=== PATIENT | female | born 1975 | race Caucasian/White ===

== ENCOUNTER 2020-03-23 09:30 | Outpatient (CLI) | payer OTHER ==
[2020-03-23 10:13] LABS: HGB - HEMOGLOBIN 11.9 g/dL (12.0-16.0); MEAN CORPUSCULAR HEMOGLOBIN 27.7 pg (27.0-31.0); MEAN PLATELET VOLUME 10.5 fL (7.9-10.8); RED BLOOD COUNT 4.3 10^6/uL (4.20-5.40); RED CELL DISTRIBUTION WIDTH 14.2 % (12.0-15.0); WHITE BLOOD COUNT 3.5 x10^3/uL (4.8-10.8)
[2020-03-23 10:33] LABS: CHOL/HDL RATIO 3.2 (<4.4); CHOLESTEROL 221 mg/dL; HDL CHOLESTEROL 69 mg/dL; LDL CHOLESTEROL,CALCULATED 137 mg/dL; VLDL CHOLESTEROL 15 mg/dL
== END 2020-03-23 09:31 | disposition home or self-care (01) ==
LOC: LAB 09:30
PROVIDERS: ATTEND Advanced Practice Midwife
DX: Z00.00 Encounter for general adult medical examination without abnormal findings (principal)
CPT/HCPCS: 36415; 80061; 82306; 83721; 84443; 85027

== ENCOUNTER 2021-11-17 08:24 | Emergency (ER) | payer OTHER ==
--- NOTE | 2021-11-17 08:44 | ED Physician Documentation ---
PD HPI SYNCOPE - Stated complaint Stated Complaint: PASSING OUT - Chief complaint Chief Complaint: Cardiac - History obtained from History obtained from: Patient - History of Present Illness Witnessed: Witnessed Timing - onset: Today (The patient was sitting out on her deck with her mother comfortably having coffee when felt abruptly lightheaded and near syncope. This resolved after 5 to 10 seconds and then felt fine. It recurred twice over the next 15 minutes or so. She started recording her heart rhythm with her watch.) Duration: Seconds Preceding symptoms: Light headed. No: Headache, Chest pain, Abdominal pain, Nausea / vomiting, Generalized weakness Associated symptoms: No: Seizure, Headache, Chest pain, Dyspnea Contributing factors: No: Recent med change, Decreased PO intake, Noxious stimulae, Just stood up Injury occurred: No: Fell, Head injury, Neck injury Similar symptoms before: No diagnosis (She states similar episode several days ago very briefly but thought it was just vasovagal. Interval time with normal exercise tolerance.) Recently seen: Not recently seen Review of Systems Constitutional: denies: Fever, Chills Nose: denies: Rhinorrhea / runny nose, Congestion Throat: denies: Sore throat Respiratory: denies: Cough GI: denies: Abdominal Pain, Nausea, Vomiting, Diarrhea, Bloody / black stool Neurologic: reports: Near syncope. denies: Generalized weakness, Altered mental status, Headache PD PAST MEDICAL HISTORY - Past Medical History Past Medical History: No Respiratory: None Neuro: None Endocrine/Autoimmune: None - Present Medications Home Medications: Ambulatory Orders Medication Instructions Recorded Confirmed No Known Home Medications 11/17/21 11/17/21 - Allergies Allergies/Adverse Reactions: Allergies Allergy/AdvReac Type Severity Reaction Status Date / Time morphine AdvReac Hives Verified 11/17/21 08:28 PD ED PE NORMAL - Vitals Vital signs reviewed: Yes - General General: Alert and oriented X 3, No acute distress, Well developed/nourished - HEENT HEENT: Pharynx benign - Neck Neck: Supple, no meningeal sign, No adenopathy, No JVD - Cardiac Cardiac: RRR, No murmur, No rub - Respiratory Respiratory: No respiratory distress, Clear bilaterally - Abdomen Abdomen: Soft, Non tender - Derm Derm: Normal color, Warm and dry - Extremities Extremities: Normal ROM s pain, No edema, No calf tenderness / cord - Neuro Neuro: Alert and oriented X 3, No motor deficit, No sensory deficit, Normal speech Results - Vitals Vitals: Vital Signs - 24 hr 11/17/21 11/17/21 11/17/21 08:29 08:43 10:10 Temperature 36.2 C L Heart Rate 109 H 109 H 89 Respiratory 18 20 24 Rate Blood Pressure 147/96 H 147/87 H 113/80 O2 Saturation 100 100 99 11/17/21 11/17/21 11/17/21 10:30 11:31 12:13 Temperature Heart Rate 82 94 81 Respiratory 16 32 H 19 Rate Blood Pressure 120/72 122/88 H 118/69 O2 Saturation 100 99 98 11/17/21 11/17/21 11/17/21 12:53 13:05 13:43 Temperature Heart Rate 76 79 105 H Respiratory 23 25 H 24 Rate Blood Pressure 116/78 104/82 H 119/86 H O2 Saturation 98 99 100 11/17/21 11/17/21 11/17/21 14:20 14:34 15:03 Temperature 37.2 C Heart Rate 86 92 85 Respiratory 16 18 20 Rate Blood Pressure 139/91 H 129/79 146/112 H O2 Saturation 98 99 100 11/17/21 11/17/21 16:02 17:00 Temperature 37 C Heart Rate 94 63 Respiratory 17 22 Rate Blood Pressure 146/112 H 142/129 H O2 Saturation 98 100 Oxygen O2 Source Room air - EKG (time done) 08:35 Rate: Rate (enter#) (99) Rhythm: NSR [place]: Normal Intervals: Normal VT. No: Prolonged QT QRS: Normal Ischemia: Normal ST segments. No: ST elevation c/w ischemia, ST depression Compare to prior EKG: Old EKG unavailable - Tele (time rhythm occurred) from her watch Telemetry / rhythm strip: Other (Sinus rhythm rate approximately 80 with then a 5-second pause with P waves at normal intervals but no QRS.) - Labs Labs: Laboratory Tests 11/17/21 11/17/21 11/17/21 08:40 08:40 08:40 WBC 4.6 L RBC 4.79 Hgb 13.0 Hct 39.6 MCV 82.7 MCH 27.1 MCHC 32.8 RDW 13.8 Plt Count 206 MPV 10.3 Neut # (Auto) 2.6 Lymph # (Auto) 1.3 L [place] # (Auto) 0.4 Eos # (Auto) 0.2 Baso # (Auto) 0.0 Absolute Nucleated RBC 0.00 Nucleated RBC % 0.0 Sodium 135 Potassium 3.8 Chloride 103 Carbon Dioxide 22 Anion Gap 10.0 BUN 11 Creatinine 0.6 Estimated GFR (MDRD) 107 Glucose 103 H Calcium 9.5 Magnesium Total Bilirubin 0.7 AST 24 ALT 24 Alkaline Phosphatase 64 Troponin I High Sens 2.3 B-Natriuretic Peptide Total Protein 8.1 Albumin 4.5 Globulin 3.6 Albumin/Globulin Ratio 1.3 Lipase 49 TSH Nasal Adenovirus (PCR) Nasal B. parapertussis DNA (PCR) Nasal Coronavir 229E PCR Nasal Coronavir HKU1 PCR Nasal Coronavir NL63 PCR Nasal Coronavir OC43 PCR Nasal Enterovir/Rhinovir PCR Nasal Influenza B PCR Nasal Influenza A PCR Nasal Parainfluen 1 PCR Nasal Parainfluen 2 PCR Nasal Parainfluen 3 PCR Nasal Parainfluen 4 PCR Nasal RSV (PCR) Nasal B.pertussis DNA PCR Nasal C.pneumoniae (PCR) [place] Human Metapneumo PCR Nasal M.pneumoniae (PCR) Nasal SARS-CoV-2 (PCR) 11/17/21 11/17/21 11/17/21 08:40 08:40 08:40 WBC RBC Hgb Hct MCV MCH MCHC RDW Plt Count MPV Neut # (Auto) Lymph # (Auto) [place] # (Auto) Eos # (Auto) Baso # (Auto) Absolute Nucleated RBC Nucleated RBC % Sodium Potassium Chloride Carbon Dioxide Anion Gap BUN Creatinine Estimated GFR (MDRD) Glucose Calcium Magnesium 2.3 Total Bilirubin AST ALT Alkaline Phosphatase Troponin I High Sens B-Natriuretic Peptide 14 Total Protein Albumin Globulin Albumin/Globulin Ratio Lipase TSH 3.70 Nasal Adenovirus (PCR) Nasal B. parapertussis DNA (PCR) Nasal Coronavir 229E PCR Nasal Coronavir HKU1 PCR Nasal Coronavir NL63 PCR Nasal Coronavir OC43 PCR Nasal Enterovir/Rhinovir PCR Nasal Influenza B PCR Nasal Influenza A PCR Nasal Parainfluen 1 PCR Nasal Parainfluen 2 PCR Nasal Parainfluen 3 PCR Nasal Parainfluen 4 PCR Nasal RSV (PCR) Nasal B.pertussis DNA PCR Nasal C.pneumoniae (PCR) [place] Human Metapneumo PCR Nasal M.pneumoniae (PCR) Nasal SARS-CoV-2 (PCR) 11/17/21 10:50 WBC RBC Hgb Hct MCV MCH MCHC RDW Plt Count MPV Neut # (Auto) Lymph # (Auto) [place] # (Auto) Eos # (Auto) Baso # (Auto) Absolute Nucleated RBC Nucleated RBC % Sodium Potassium Chloride Carbon Dioxide Anion Gap BUN Creatinine Estimated GFR (MDRD) Glucose Calcium Magnesium Total Bilirubin AST ALT Alkaline Phosphatase Troponin I High Sens B-Natriuretic Peptide Total Protein Albumin Globulin Albumin/Globulin Ratio Lipase TSH Nasal Adenovirus (PCR) NOT DETECTED Nasal B. parapertussis DNA (PCR) NOT DETECTED Nasal Coronavir 229E PCR NOT DETECTED Nasal Coronavir HKU1 PCR NOT DETECTED Nasal Coronavir NL63 PCR NOT DETECTED Nasal Coronavir OC43 PCR NOT DETECTED Nasal Enterovir/Rhinovir PCR NOT DETECTED Nasal Influenza B PCR NOT DETECTED Nasal Influenza A PCR NOT DETECTED Nasal Parainfluen 1 PCR NOT DETECTED Nasal Parainfluen 2 PCR NOT DETECTED Nasal Parainfluen 3 PCR NOT DETECTED Nasal Parainfluen 4 PCR NOT DETECTED Nasal RSV (PCR) NOT DETECTED Nasal B.pertussis DNA PCR NOT DETECTED Nasal C.pneumoniae (PCR) NOT DETECTED [place] Human Metapneumo PCR NOT DETECTED Nasal M.pneumoniae (PCR) NOT DETECTED Nasal SARS-CoV-2 (PCR) NOT DETECTED - Rads (name of study) chest xray Radiology: Prelim report reviewed (no acute process), See rad report PD MEDICAL DECISION MAKING - ED course Complexity details: reviewed results, re-evaluated patient, considered differential (The patient has a short telemetry switch from her watch which clearly shows a rhythm with a 5-second period of no ventricular conduction of the P waves. She had several episodes of this this morning. I would want cardiology input and presumed transfer.), d/w patient, d/w provider contracting consultant (Spoke with Dr. Brooks cardiology at [facility]. He felt the patient likely has indication for pacemaker. However they do not have any capacity for beds to accept. Suggest calling other places. I talked with Dr. Myrna Lowe on-call cardiology for . She does accept but no beds.) ED course: At this point we are looking at other facilities for potential transfer and at least cardiology consult. [facility] is had us paged Dr. Mckeon but he has not yet called back as he has been in a procedure. Other hospitals do not have beds available. [facility] cardiology did call back and felt the patient does need a pacemaker but they do not have beds available. I talked with Dr. Myrna Lowe on-call cardiol ogcole at the who also feels the pacemaker is indicated but they do not have beds available. She does accept the transfer however to put the patient on a acceptance priority list for cardiology. They do use or just to keep calling other places though. The patient had a connection through a professional contact with a technical project lead at [facility], Dr. Covarrubias. He states he would talk with the [facility] and see if they are able to accept directly to the ER. Our TRENCHING MACHINE OPERATOR did contact the [facility] transfer center who declined ER to ER transfer because of their boarding excessively large number of patients. I updated the patient here who is understanding of the situation. transfer did call back and they had a room available at their [facility]. They are excepting the transfer. The patient remained stable in the ER without any further episodes. Normal sinus rhythm on monitor. She maintains with the pacing pads in place just in case. She will be transferred by ALS ambulance to the [facility]. Departure - Departure Disposition: 02 Transfer Acute Care Hosp Clinical Impression: Near syncope, Intermittent complete atrioventricular block Condition: Stable Record reviewed to determine appropriate education?: Yes
[2021-11-17 08:47] LABS: BASOPHILS % (AUTO) 0.7 %; EOSINOPHILS # (AUTO) 0.2 10^3/uL (0.0-0.7); EOSINOPHILS % (AUTO) 4.6 %; HCT - HEMATOCRIT 39.6 % (37.0-47.0); LYMPHOCYTES # (AUTO) 1.3 10^3/uL (1.5-3.5); LYMPHOCYTES % (AUTO) 28.9 %; MEAN CORPUSCULAR HEMOGLOBIN 27.1 pg (27.0-31.0); MEAN CORPUSCULAR HGB CONC 32.8 g/dL (32.0-36.0); MEAN CORPUSCULAR VOLUME 82.7 fL (81.0-99.0); MEAN PLATELET VOLUME 10.3 fL (7.9-10.8); MONOCYTES # (AUTO) 0.4 10^3/uL (0.0-1.0); MONOCYTES % (AUTO) 8.5 %; NEUTROPHILS # (AUTO) 2.6 10^3/uL (1.5-6.6); NEUTROPHILS % (AUTO) 57.1 %; PLT - PLATELET COUNT 206 10^3/uL (130-450); RED BLOOD COUNT 4.79 10^6/uL (4.20-5.40); RED CELL DISTRIBUTION WIDTH 13.8 % (12.0-15.0); WHITE BLOOD COUNT 4.6 x10^3/uL (4.8-10.8)
--- NOTE | 2021-11-17 08:55 | XRAY Report ---
PROCEDURE: Chest 1 View X-Ray INDICATIONS: Chest pain TECHNIQUE: One view of the chest was acquired. COMPARISON: None FINDINGS: Surgical changes and devices: None. Lungs and pleura: No pleural effusions or pneumothorax. Lungs are clear. Mediastinum: Mediastinal contours appear normal. Heart size is normal. Bones and chest wall: No suspicious bony lesions. Overlying soft tissues appear unremarkable. IMPRESSION: No evidence acute pulmonary process. Reviewed by: Tano Shaikh MD on 11/17/2021 7:54 AM ULISESS Approved by: Tano Shaikh MD on 11/17/2021 7:54 AM ULISSES Station ID: [id number]
[2021-11-17 09:06] LABS: ALBUMIN 4.5 g/dL (3.2-5.5); ALBUMIN/GLOBULIN RATIO 1.3 (1.0-2.2); BILIRUBIN,TOTAL 0.7 mg/dL (0.2-1.0); CALCIUM 9.5 mg/dL (8.5-10.3); CREATININE 0.6 mg/dL (0.4-1.0); POTASSIUM 3.8 mmol/L (3.5-5.0); TOTAL PROTEIN 8.1 g/dL (6.7-8.2)
[2021-11-17 12:05] LABS: B. PARAPERTUSSIS- RESP PCR PAN NOT DETECTED; B. PERTUSSIS- RESP PCR PANEL NOT DETECTED; C. PNEUMONIAE- RESP PCR PANEL NOT DETECTED; CORONAVIRUS 229E-RESP PCR NOT DETECTED; CORONAVIRUS HKU1-RESP PCR NOT DETECTED; CORONAVIRUS NL63-RESP PCR NOT DETECTED; CORONAVIRUS OC43-RESP PCR NOT DETECTED; HUMAN METAPNEUMOVIRUS NOT DETECTED; INFLUENZA A- RESP PCR PANEL NOT DETECTED; INFLUENZA B - RESP PCR PANEL NOT DETECTED; M. PNEUMONIAE- RESP PCR PANEL NOT DETECTED; PARAINFLUENZA VIRUS 1 NOT DETECTED; PARAINFLUENZA VIRUS 2 NOT DETECTED; PARAINFLUENZA VIRUS 3 NOT DETECTED; PARAINFLUENZA VIRUS 4 NOT DETECTED; RHINOVIRUS/ENTEROVIRUS NOT DETECTED; RSV- RESP PCR PANEL NOT DETECTED; SARS-CoV-2 -RESP PCR PANEL NOT DETECTED
[2021-11-17 17:00] VITALS: BP 142/129
[2021-11-20 09:09] LABS: LYME TOTAL AB CIA Negative (Negative)
== END 2021-11-17 17:39 | disposition short-term general hospital (02) ==
LOC: ED 08:24
DX: I44.2 Atrioventricular block, complete (principal); Z20.822 Contact with and (suspected) exposure to COVID-19
CPT/HCPCS: 36415; 80053; 83690; 83735; 83880; 84443; 84484; 85025; 86618; 87633; 93005; 99284; 99285

== ENCOUNTER 2022-03-19 07:20 | Day surgery (SDC) | payer OTHER ==
[2022-03-19] MEDS ORDERED: LACTATED RINGERS 1,000 ML IV ONE (07:37)
[2022-03-19] MEDS ORDERED: PROPOFOL 500 MG/50 ML 500 MG/50 ML VIAL ONE (08:11)
[2022-03-19] MEDS ORDERED: LIDOCAINE-MPF 2% 5 ML VIAL ONE (08:17)
--- NOTE | 2022-03-19 08:17 | ANESTHESIA ---
Pre-Anesthesia VS, & Labs - Diagnosis screening - Procedure colonoscopy Vital Signs: Temp Pulse Resp BP Pulse Ox O2 Flow Rate 36.3 C L 82 12 123/89 H 99 03/19/22 07:29 03/19/22 07:29 03/19/22 07:29 03/19/22 07:29 03/19/22 07:29 Height: 5 ft 9 in Weight (kg): 114 kg Body Mass Index: 37.0 BMI Classification: Obese - NPO >8 hours - Is Patient ?: No Home Medications and Allergies Home Medications: Ambulatory Orders Alprazolam [Xanax] 0.25 mg PO DAILY 03/18/22 Cyclobenzaprine [Flexeril] 10 mg PO DAILY 03/18/22 Metoprolol Succinate [Kapspargo Sprinkle] 50 mg PO DAILY 03/18/22 Alprazolam [Xanax] 0.25 mg PO DAILY 03/18/22 Cyclobenzaprine [Flexeril] 10 mg PO DAILY 03/18/22 Metoprolol Succinate [Kapspargo Sprinkle] 50 mg PO DAILY 03/18/22 Allergies/Adverse Reactions: Allergies Allergy/AdvReac Type Severity Reaction Status Date / Time morphine AdvReac Hives Verified 11/17/21 08:28 Anes History & Medical History - Anesthetic History Anesthesia Complications: reports: No previous complications Family history of Anesthesia Complications: Denies Family history of Malignant Hyperthermia: Denies - Medical History Cardiovascular: reports: Arrhythmia, Other Pulmonary: reports: None Gastrointestinal: reports: None Urinary: reports: None Neuro: reports: None Musculoskeletal: reports: Osteoarthritis Endocrine/Autoimmune: reports: None Blood Disorders: reports: None Skin: reports: None Smoking Status: Light tobacco smoker - Surgical History Cardiothoracic: reports: Pacemaker Gynecologic: reports: Dilation and currettage, Tubal ligation Exam General: Alert, Oriented x3, Cooperative Dental: WNL Mouth Openin Fingerbreadth Neck Mobility: Normal Mallampati classification: II Thyromental Distance: 4-6 cm Respiratory: Lungs clear Cardiovascular: Regular rate Plan Anesthesia Type: Total IV Consent for Procedure(s) Verified and Reviewed: Yes Code Status: Attempt Resuscitation ASA classification: 2-Mild systemic disease Is this case an emergency?: No
[2022-03-19] MEDS ORDERED: MIDAZOLAM 2 MG/2 ML VIAL ONE (08:19)
[2022-03-19] MEDS ORDERED: PROPOFOL 200 MG/20 ML VIAL IVP ONE (08:41)
[2022-03-19] MEDS ORDERED: LACTATED RINGERS 400 ML IV ONE (08:56)
[2022-03-19 09:20] VITALS: BP 94/78
--- NOTE | 2022-03-19 12:47 | ANESTHESIA POST OP EVALUATION ---
Anesthesia Post Eval - Post Anesthesia Eval Vitals: Last Vital Signs Temp 36.5 C 03/19/22 09:10 Pulse 75 03/19/22 09:10 Resp 14 03/19/22 09:10 BP 94/78 03/19/22 09:10 Pulse Ox 100 03/19/22 09:10 O2 Flow Rate CV Function Including HR & BP: Stable Pain Control: Satisfactory Nausea & Vomiting: Negative Mental Status: Baseline Respiratory Status: Airway Patent Hydration Status: Satisfactory Anesthesia Complications: None
== END 2022-03-19 07:21 | disposition home or self-care (01) ==
LOC: SDS 07:20
PROVIDERS: ATTEND Surgery
DX: Z12.11 Encounter for screening for malignant neoplasm of colon (principal); K64.8 Other hemorrhoids; E66.9 Obesity, unspecified; Z68.37 Body mass index [BMI] 37.0-37.9, adult; F17.200 Nicotine dependence, unspecified, uncomplicated
CPT/HCPCS: 45378; J7120

== ENCOUNTER 2022-03-28 14:06 | Outpatient (CLI) | payer OTHER ==
[2022-03-28 14:27] LABS: BASOPHILS % (AUTO) 0.5 %; EOSINOPHILS # (AUTO) 0.1 10^3/uL (0.0-0.7); EOSINOPHILS % (AUTO) 1.8 %; HCT - HEMATOCRIT 35.4 % (37.0-47.0); HGB - HEMOGLOBIN 11.9 g/dL (12.0-16.0); LYMPHOCYTES % (AUTO) 24.9 %; MEAN CORPUSCULAR HEMOGLOBIN 28.3 pg (27.0-31.0); MEAN CORPUSCULAR HGB CONC 33.6 g/dL (32.0-36.0); MEAN CORPUSCULAR VOLUME 84.1 fL (81.0-99.0); MEAN PLATELET VOLUME 9.8 fL (7.9-10.8); MONOCYTES # (AUTO) 0.3 10^3/uL (0.0-1.0); MONOCYTES % (AUTO) 6.4 %; NEUTROPHILS # (AUTO) 2.6 10^3/uL (1.5-6.6); NEUTROPHILS % (AUTO) 66.4 %; PLT - PLATELET COUNT 195 10^3/uL (130-450); RED BLOOD COUNT 4.21 10^6/uL (4.20-5.40); WHITE BLOOD COUNT 3.9 x10^3/uL (4.8-10.8)
[2022-03-28 14:46] LABS: ALBUMIN 4.3 g/dL (3.2-5.5); ALBUMIN/GLOBULIN RATIO 1.2 (1.0-2.2); ALKALINE PHOSPHATASE 69 IU/L (42-121); ALT ALANINE AMINOTRANSFERASE 25 IU/L (10-60); AST ASPARTATE AMINOTRANSFERASE 29 IU/L (10-42); BILIRUBIN,TOTAL 0.7 mg/dL (0.2-1.0); BUN - BLOOD UREA NITROGEN 10 mg/dL (6-20); CALCIUM 9.2 mg/dL (8.5-10.3); CARBON DIOXIDE - CO2 26 mmol/L (21-32); CHLORIDE 103 mmol/L (101-111); CHOL/HDL RATIO 3.3 (<4.4); CHOLESTEROL 197 mg/dL; CREATININE 0.7 mg/dL (0.4-1.0); GFR - MDRD 89 (>89); GLUCOSE 129 mg/dL (70-100); HDL CHOLESTEROL 59 mg/dL; LDL CHOLESTEROL,CALCULATED 110 mg/dL; LDL/HDL RATIO 1.9 (<4.4); MAGNESIUM 2.1 mg/dL (1.7-2.8); POTASSIUM 3.7 mmol/L (3.5-5.0); SODIUM 139 mmol/L (135-145); TOTAL PROTEIN 7.9 g/dL (6.7-8.2); TRIGLYCERIDES 138 mg/dL; VLDL CHOLESTEROL 28 mg/dL
[2022-03-28 14:57] LABS: THYROID STIMULATING HORMONE 1.06 uIU/mL (0.34-5.60)
== END 2022-03-28 14:07 | disposition home or self-care (01) ==
LOC: LAB 14:06
PROVIDERS: ATTEND Physician Assistant
DX: E78.5 Hyperlipidemia, unspecified (principal); R55 Syncope and collapse
CPT/HCPCS: 36415; 80053; 80061; 83721; 83735; 84443; 85025

== ENCOUNTER 2023-04-10 09:17 | Outpatient (CLI) | payer OTHER | END 2023-04-10 09:18 | disposition home or self-care (01) | LOC: RT 09:17 | PROVIDERS: ATTEND Internal Medicine Cardiovascular Disease | DX: I49.3 Ventricular premature depolarization (principal) | CPT/HCPCS: 93005 ==